=== PATIENT | male | born 1945 | race African-American/Black ===

== ENCOUNTER 2020-08-16 17:30 | Emergency (ER) | payer OTHER, MEDICAID ==
[~2020-08-16] VITALS: Ht 170.2 cm; Wt 74.8 kg
[2020-08-16 17:30] VITALS: BP_SYST 149
--- NOTE | 2020-08-16 17:30 | NUR ---
Patient to ER bed 8 to gown for evaluation. Side rails up. Report given to CARL Spaulding.
--- NOTE | 2020-08-16 17:35 | NUR ---
PT AAO BIB FAMILY FOR WORSENING SOB TODAY. PT REPORTS BROKEN RIBS FROM A FALL MONTHS AGO AND DIFFICULTY BREATHING TODAY.
--- NOTE | 2020-08-16 17:40 | NUR ---
ER Dr. CACERES at bedside examining patient.
--- NOTE | 2020-08-16 17:50 | NUR ---
IV PLACED 20G IN RIGHT AC, LABS DRAWN AND SENT.
--- NOTE | 2020-08-16 18:05 | NUR ---
PORTABLE CXR DONE AT BEDSIDE
[2020-08-16 18:07] LABS: BASOPHILS % (AUTO) 0.4 % (0.0-2.0); EOSINOPHILS # (AUTO) 0.3 K/uL (0.0-0.4); EOSINOPHILS % (AUTO) 3.9 % (0.0-4.0); HEMATOCRIT 43.4 % (36-54); HEMOGLOBIN 14.2 g/dL (14.0-18.0); LYMPHOCYTES # (AUTO) 1.8 K/uL (1.0-5.5); LYMPHOCYTES % (AUTO) 23.5 % (20.5-51.5); MEAN CORPUSCULAR HEMOGLOBIN 24 pg (27-31); MEAN CORPUSCULAR HGB CONC 33 % (32-36); MEAN CORPUSCULAR VOLUME 72 fL (79.0-98.0); MONOCYTES # (AUTO) 0.5 K/uL (0.0-1.0); MONOCYTES % (AUTO) 6.6 % (1.7-9.3); NEUTROPHILS # (AUTO) 5.1 K/uL (1.8-7.7); NEUTROPHILS % (AUTO) 65.6 % (40.0-70.0); PLATELET COUNT (AUTO) 184 K/uL (130-430); RED BLOOD CELL COUNT(AUTO) 6.07 MIL/uL (4.2-6.2); RED CELL DISTRIBUTION WIDTH 14.4 % (9.0-15.0); WHITE BLOOD COUNT (AUTO) 7.8 K/uL (4.8-10.8)
[2020-08-16 18:14] LABS: ANION GAP 8 (5-15); CALCIUM 8.7 mg/dL (8.4-11.0); CHLORIDE 100 mmol/L (98-107); CREATININE 0.95 mg/dL (0.55-1.30); GLUCOSE 107 mg/dL (70-99); POTASSIUM 4.2 mmol/L (3.5-5.1); SODIUM SERUM 137 mmol/L (136-145); UREA NITROGEN, BLOOD 21 mg/dL (8-21)
[2020-08-16 18:20] LABS: ALANINE AMINOTRANSFERASE 30 U/L (12-78); ALBUMIN 3.7 g/dL (3.4-4.8); ASPARTATE AMINOTRANSFERASE 21 U/L (10-37); TOTAL BILIRUBIN 0.3 mg/dL (0.0-1.0)
[2020-08-16 19:27] VITALS: BP_SYST 114
--- NOTE | 2020-08-16 19:27 | NUR ---
Patient given written and verbal discharge instructions and verbalizes understanding. ER MD discussed with patient the results and treatment provided. Patient in stable condition. ID arm band removed. IV catheter removed intact and dressing applied, no active bleeding. Rx of Albuterol 90 mcg/inhalation given. Patient educated on pain management and to follow up with PMD. Pain Scale 0/10. Opportunity for questions provided and answered. Medication side effect fact sheet provided.
== END 2020-08-16 19:27 | disposition home or self-care (01) ==
LOC: SED 17:30
DX: R06.00 Dyspnea, unspecified (principal); I10 Essential (primary) hypertension; E78.5 Hyperlipidemia, unspecified
CPT/HCPCS: 36415; 71045; 80053; 82550-TC; 83880; 84484; 85025; 85379; 93005; 99285